=== PATIENT | male | born 1940 | race African-American/Black ===

== ENCOUNTER 2020-08-26 09:20 | Inpatient (IN) | payer MEDICARE, MEDICAID ==
[~2020-08-26] VITALS: Ht 172.7 cm; Wt 68.5 kg
[~2020-08-26 09:20] MED LIST: AMLO10TA4; ASPI-1497; HYDR-1348; PRAV40TA; PREG75CA
[2020-08-26 10:04] LABS: BASOPHILS % 1.2 % (0.0-2.0); HEMATOCRIT. 33.6 % (42.0-52.0); HEMOGLOBIN. 11.4 g/dL (14.0-18.0); LYMPHOCYTES % 30.2 % (20.0-50.0); MEAN CORPUSCULAR HEMOGLOBIN 29.1 pg (28.0-32.0); MEAN CORPUSCULAR VOLUME 85.4 fL (80.0-94.0); MEAN PLATELET VOLUME 7.4 fl (7.4-10.4); MONOCYTES % 7.2 % (2.0-8.0); NEUTROPHILS % 58.4 % (40.0-76.0); PLATELET 330 x1000/uL (130-400); RED BLOOD CELL COUNT 3.93 mill/uL (4.7-6.1); RED CELL DISTRIBUTION WIDTH 14.6 % (11.6-14.6)
[2020-08-26 10:12] LABS: CHLORIDE 111 mEq/L (98-107)
[2020-08-26 10:14] LABS: INR 1.1; PROTHROMBIN TIME 11.3 sec (9.6-11.0)
[2020-08-26 10:53] LABS: CLARITY URINE CLEAR (CLEAR); COLOR URINE YELLOW (YELLOW); KETONES URINE NEGATIVE (NEGATIVE); LEUKOCYTE ESTERASE URINE NEGATIVE (NEGATIVE); NITRITE URINE NEGATIVE (NEGATIVE); OCCULT BLOOD URINE NEGATIVE (NEGATIVE); PH URINE 8.5 (4.5-8.0); PROTEIN URINE NEGATIVE (NEGATIVE); SPECIFIC GRAVITY URINE 1.008 (1.005-1.030); UROBILINOGEN URINE 0.2 E.U./dL (0.2-1.0)
[2020-08-26] MEDS ORDERED: PIPERACILLIN/TAZOBACTAM 3.375GM/50ML PREMIX IV ONE (13:30)
[2020-08-26] MEDS ORDERED: PIPERACILLIN/TAZ 3.375G PREMIX 50 ML IV SCH (13:45)
[2020-08-26] MEDS ORDERED: IOHEXOL-300 100 ML BOTTLE ONE (14:40)
[2020-08-26 20:45] VITALS: BP 118/81
[2020-08-26] MEDS ORDERED: MAGNESIUM/ALUMINUM HYDROXIDE/SIMETHICONE 30ML UDC PO PRN (21:45)
[2020-08-26] MEDS ORDERED: ACETAMINOPHEN 650MG/20.3ML UDC GT PRN ×2 (21:45)
[2020-08-26] MEDS ORDERED: ONDANSETRON HCL 4MG/2ML INJ IV PRN (21:45)
[2020-08-26] MEDS ORDERED: ACETAMINOPHEN 650MG SUPP PR PRN (21:45)
[2020-08-26] MEDS ORDERED: CLONIDINE 0.1MG TABLET PO PRN (21:45)
[2020-08-26] MEDS: MORPHINE SULFATE 2 MG/ML CPJ (NOT FOR IM USE) IV PRN (23:26)
[2020-08-26] MEDS: CEFTRIAXONE 1,000 MG in DEXTROSE 5% WATER 50 ML IV SCH (23:37)
[2020-08-26] MEDS: DEXT 5%/0.45% NACL 1000ML 1,000 ML IV SCH (23:37)
[2020-08-27] VITALS (7 sets, daily range): BP systolic 92–168; BP diastolic 53–75
[2020-08-27 07:10] LABS: CHLORIDE 111 mEq/L (98-107)
[2020-08-27 07:21] LABS: LDL CHOLESTEROL 121 mg/dL (5-100)
[2020-08-27 07:23] LABS: HDL CHOLESTEROL 57 mg/dL (40-59)
[2020-08-27 07:24] LABS: BASOPHILS % 0.8 % (0.0-2.0); EOSINOPHILS % 4.3 % (0.0-5.0); HEMATOCRIT. 34.6 % (42.0-52.0); HEMOGLOBIN. 11.8 g/dL (14.0-18.0); LYMPHOCYTES % 32.1 % (20.0-50.0); MEAN CORPUSCULAR HEMOGLOBIN 28.9 pg (28.0-32.0); MEAN CORPUSCULAR VOLUME 84.8 fL (80.0-94.0); MEAN PLATELET VOLUME 8.1 fl (7.4-10.4); MONOCYTES % 7.6 % (2.0-8.0); NEUTROPHILS % 55.2 % (40.0-76.0); PLATELET 304 x1000/uL (130-400); RED BLOOD CELL COUNT 4.08 mill/uL (4.7-6.1); RED CELL DISTRIBUTION WIDTH 14.5 % (11.6-14.6)
[2020-08-27] MEDS: MULTIVITAMINS,THER W-MINERALS TABLET PO SCH (08:21)
[2020-08-27] MEDS: ENOXAPARIN 40MG/0.4ML SYR SUBCUT SCH (08:21)
[2020-08-27] MEDS: DEXT 5%/0.45% NACL 1000ML 1,000 ML IV SCH ×2 (11:26→23:51)
[2020-08-27] MEDS: CEFTRIAXONE 1,000 MG in DEXTROSE 5% WATER 50 ML IV SCH (23:51)
[2020-08-28 04:00] VITALS: BP 157/69
[2020-08-28 08:10] VITALS: BP 132/65
[2020-08-28] MEDS: ENOXAPARIN 40MG/0.4ML SYR SUBCUT SCH (09:37)
[2020-08-28] MEDS: MULTIVITAMINS,THER W-MINERALS TABLET PO SCH (09:37)
[2020-08-28 12:08] VITALS: BP 156/68
[2020-08-28] MEDS ORDERED: ACETAMINOPHEN 325MG TABLET PO PRN (13:15)
[2020-08-28] MEDS: DEXT 5%/0.45% NACL 1000ML 1,000 ML IV SCH (14:00)
[2020-08-28] MEDS ORDERED: METR500T MT (14:56)
[2020-08-28] MEDS: MORPHINE SULFATE 2 MG/ML CPJ (NOT FOR IM USE) IV PRN ×2 (15:12→16:03)
[2020-08-28 16:41] VITALS: BP 140/65
== END 2020-08-28 17:45 | disposition home or self-care (01) | DRG 392 ==
LOC: ER 09:20 → 6WST 14:52 → EDBEDREQSVC 18:52 → ENRESERV 19:50
PROVIDERS: ADMIT Family Medicine; ATTEND Family Medicine
DX: K52.9 Noninfective gastroenteritis and colitis, unspecified (principal); E44.0 Moderate protein-calorie malnutrition; F01.50 Vascular dementia, unspecified severity, without behavioral disturbance, psychotic disturbance, mood disturbance, and anxiety; E78.5 Hyperlipidemia, unspecified; I10 Essential (primary) hypertension; G89.29 Other chronic pain; Z79.1 Long term (current) use of non-steroidal anti-inflammatories (NSAID); Z90.49 Acquired absence of other specified parts of digestive tract; Z79.899 Other long term (current) drug therapy; Z86.73 Personal history of transient ischemic attack (TIA), and cerebral infarction without residual deficits; Z68.23 Body mass index [BMI] 23.0-23.9, adult; E86.0 Dehydration
CPT/HCPCS: 36415; 74177; 76705; 80053; 80061; 81003; 84484; 85025; 99285; J0696; J1650; J2270; J2543; J7060; Q9967

== ENCOUNTER 2021-06-09 08:27 | Emergency (ER) | payer MEDICARE, MEDICAID ==
[~2021-06-09] VITALS: Ht 180.3 cm; Wt 74.0 kg
[2021-06-09] MEDS ORDERED: HYDROCODONE/ACETAMINOPHEN 5/325MG TABLET PO STA (08:41)
[2021-06-09 09:25] LABS: BASOPHILS % 0.6 % (0.0-2.0); HEMATOCRIT. 36.9 % (42.0-52.0); HEMOGLOBIN. 12.1 g/dL (14.0-18.0); LYMPHOCYTES % 33.9 % (20.0-50.0); MEAN CORPUSCULAR HEMOGLOBIN 27.7 pg (28.0-32.0); MEAN CORPUSCULAR VOLUME 84.6 fL (80.0-94.0); MEAN PLATELET VOLUME 7.1 fl (7.4-10.4); MONOCYTES % 7.3 % (2.0-8.0); NEUTROPHILS % 54.2 % (40.0-76.0); PLATELET 415 x1000/uL (130-400); RED BLOOD CELL COUNT 4.36 mill/uL (4.7-6.1); RED CELL DISTRIBUTION WIDTH 15.1 % (11.6-14.6)
[2021-06-09 09:32] LABS: CHLORIDE 111 mEq/L (98-107)
[2021-06-09 10:45] VITALS: BP 147/58
[2021-06-09] MEDS ORDERED: MELO-105 MT (10:46)
== END 2021-06-09 10:54 | disposition home or self-care (01) ==
LOC: ER 08:38
DX: R07.89 Other chest pain (principal); M25.511 Pain in right shoulder; I10 Essential (primary) hypertension; Z90.49 Acquired absence of other specified parts of digestive tract; Z86.73 Personal history of transient ischemic attack (TIA), and cerebral infarction without residual deficits; Z98.890 Other specified postprocedural states
CPT/HCPCS: 36415; 71045; 73030; 80053; 85025; 93005; 99285

== ENCOUNTER 2021-10-23 07:51 | Inpatient (IN) | payer MEDICARE, MEDICAID ==
[~2021-10-23] VITALS: Ht 182.9 cm; Wt 59.0 kg
[~2021-10-23 07:51] MED LIST changes: +MELO-105 MT; +POLY17PO3 PO; +TOPUD PO
[2021-10-23] MEDS ORDERED: MORPHINE SULFATE 4 MG/ML CPJ (NOT FOR IM USE) IV STA (08:03)
[2021-10-23] MEDS ORDERED: ONDANSETRON HCL 4MG/2ML INJ IV STA (08:03)
[2021-10-23 08:32] LABS: BASOPHILS % 0.8 % (0.0-2.0); EOSINOPHILS % 2.1 % (0.0-5.0); HEMATOCRIT. 34.5 % (42.0-52.0); HEMOGLOBIN. 11.3 g/dL (14.0-18.0); LYMPHOCYTES % 21.1 % (20.0-50.0); MEAN CORPUSCULAR HEMOGLOBIN 27.5 pg (28.0-32.0); MEAN CORPUSCULAR VOLUME 83.6 fL (80.0-94.0); MONOCYTES % 6.4 % (2.0-8.0); NEUTROPHILS % 69.6 % (40.0-76.0); RED BLOOD CELL COUNT 4.13 mill/uL (4.7-6.1); RED CELL DISTRIBUTION WIDTH 15.1 % (11.6-14.6)
[2021-10-23 08:33] LABS: CHLORIDE 108 mEq/L (98-107)
[2021-10-23 09:38] LABS: CLARITY URINE CLEAR (CLEAR); COLOR URINE YELLOW (YELLOW); KETONES URINE NEGATIVE (NEGATIVE); LEUKOCYTE ESTERASE URINE NEGATIVE (NEGATIVE); NITRITE URINE NEGATIVE (NEGATIVE); OCCULT BLOOD URINE NEGATIVE (NEGATIVE); PROTEIN URINE NEGATIVE (NEGATIVE); SPECIFIC GRAVITY URINE 1.006 (1.005-1.030); UROBILINOGEN URINE 0.2 E.U./dL (0.2-1.0)
[2021-10-23] MEDS ORDERED: ONDANSETRON HCL 4MG/2ML INJ IV NR (09:45)
[2021-10-23] MEDS ORDERED: MORPHINE SULFATE 4 MG/ML CPJ (NOT FOR IM USE) IV NR (09:45)
[2021-10-23 10:07] LABS: PLATELET 397 x1000/uL (130-400)
[2021-10-23] MEDS ORDERED: ACETAMINOPHEN 325MG TABLET PO PRN (13:30)
[2021-10-23] MEDS ORDERED: CEFTRIAXONE 1 G PREMIX 50 ML IV NR (13:30)
[2021-10-23] MEDS ORDERED: ONDANSETRON HCL 4MG/2ML INJ IV PRN (13:30)
[2021-10-23 16:00] VITALS: BP 163/60
[2021-10-23 16:23] VITALS: BP 163/60
[2021-10-23] MEDS ORDERED: LACTULOSE 20G/30ML UDC PO NR (19:00)
[2021-10-23 20:00] VITALS: BP 130/51
[2021-10-23] MEDS: FAMOTIDINE 20MG TABLET PO SCH (20:56)
[2021-10-23] MEDS: DOCUSATE SODIUM 250MG CAPSULE PO SCH (20:56)
[2021-10-23] MEDS: AMLODIPINE 10MG TABLET PO SCH (21:00)
[2021-10-24] VITALS: BP 112/49
[2021-10-24 04:00] VITALS: BP 115/47
[2021-10-24 08:14] VITALS: BP 108/50
[2021-10-24] MEDS: AMLODIPINE 10MG TABLET PO SCH (08:57)
[2021-10-24] MEDS: DOCUSATE SODIUM 250MG CAPSULE PO SCH ×2 (08:58→18:26)
[2021-10-24] MEDS: CEFTRIAXONE 1,000 MG in DEXTROSE 5% WATER 50 ML IV SCH ×2 (09:00→11:44)
[2021-10-24 12:00] VITALS: BP 146/55
[2021-10-24] MEDS ORDERED: MAGNESIUM/ALUMINUM HYDROXIDE/SIMETHICONE 30ML UDC PO PRN (12:30)
[2021-10-24] MEDS ORDERED: NALOXONE HCL 0.4MG/ML VIAL IV PRN (13:30)
[2021-10-24] MEDS: TRAMADOL 50MG TABLET PO PRN (13:31)
[2021-10-24 16:00] VITALS: BP 123/55
[2021-10-24 20:00] VITALS: BP_SYST 121; BP_SYST 122; BP_DIAS 65; BP_DIAS 66
[2021-10-24] MEDS: FAMOTIDINE 20MG TABLET PO SCH (21:00)
[2021-10-25] VITALS: BP 121/66
[2021-10-25 04:00] VITALS: BP 122/67
[2021-10-25 08:00] VITALS: BP 130/48
[2021-10-25] MEDS: DOCUSATE SODIUM 250MG CAPSULE PO SCH (08:25)
[2021-10-25] MEDS: AMLODIPINE 10MG TABLET PO SCH (08:25)
[2021-10-25] MEDS: CEFTRIAXONE 1,000 MG in DEXTROSE 5% WATER 50 ML IV SCH (08:25)
[2021-10-25 12:00] VITALS: BP 146/47
[2021-10-25] MEDS ORDERED: LACTULOSE 20G/30ML UDC PO SCH (13:00)
[2021-10-25 16:00] VITALS: BP 151/64
[2021-10-25] MEDS ORDERED: SORBITOL 70% SOLN 30ML PO NR (16:30)
[2021-10-25] MEDS ORDERED: BISACODYL 10MG SUPP PR PRN (18:30)
[2021-10-25 20:00] VITALS: BP 166/60
[2021-10-25] MEDS: FAMOTIDINE 20MG TABLET PO SCH (21:00)
[2021-10-26] VITALS: BP_SYST 131; BP_SYST 138; BP_DIAS 56; BP_DIAS 59
[2021-10-26 08:00] VITALS: BP 128/55
[2021-10-26] MEDS: DOCUSATE SODIUM 250MG CAPSULE PO SCH (08:35)
[2021-10-26] MEDS: AMLODIPINE 10MG TABLET PO SCH (08:35)
[2021-10-26] MEDS: TRAMADOL 50MG TABLET PO PRN (08:36)
[2021-10-26] MEDS ORDERED: NA PHOS,M-B/NA PHOS,DI-BA ENEMA 118ML PR NR (09:45)
[2021-10-26 12:08] VITALS: BP 125/74
[2021-10-26 14:07] VITALS: BP 125/74
== END 2021-10-26 15:40 | disposition home or self-care (01) | DRG 392 ==
LOC: ER 08:02 → EDBEDREQ 10:53 → ENRESERV 13:04 → 6EST 14:14
PROVIDERS: ADMIT Internal Medicine; ATTEND Internal Medicine
DX: K59.00 Constipation, unspecified (principal); E44.1 Mild protein-calorie malnutrition; Z68.1 Body mass index [BMI] 19.9 or less, adult; E87.8 Other disorders of electrolyte and fluid balance, not elsewhere classified; D64.9 Anemia, unspecified; I10 Essential (primary) hypertension; K21.9 Gastro-esophageal reflux disease without esophagitis; Z86.73 Personal history of transient ischemic attack (TIA), and cerebral infarction without residual deficits; Z90.49 Acquired absence of other specified parts of digestive tract; Z82.49 Family history of ischemic heart disease and other diseases of the circulatory system
CPT/HCPCS: 36415; 74176; 76705; 80053; 81003; 85025; 93005; 99285; J0696; J2270; J2405; J7060

== ENCOUNTER 2022-04-19 09:43 | Emergency (ER) | payer MEDICARE, MEDICAID ==
[~2022-04-19] VITALS: Ht 188 cm; Wt 73.0 kg
[2022-04-19] MEDS ORDERED: MORPHINE SULFATE 4 MG/ML CPJ (NOT FOR IM USE) IV STA (09:50)
[2022-04-19 11:47] LABS: BASOPHILS % 0.9 % (0.0-2.0); EOSINOPHILS % 1.4 % (0.0-5.0); HEMATOCRIT. 39.6 % (42.0-52.0); HEMOGLOBIN. 12.9 g/dL (14.0-18.0); MEAN CORPUSCULAR HEMOGLOBIN 27.4 pg (28.0-32.0); MEAN CORPUSCULAR VOLUME 83.8 fL (80.0-94.0); MEAN PLATELET VOLUME 7.3 fl (7.4-10.4); MONOCYTES % 6.1 % (2.0-8.0); NEUTROPHILS % 66.6 % (40.0-76.0); PLATELET 387 x1000/uL (130-400); RED BLOOD CELL COUNT 4.72 mill/uL (4.7-6.1); RED CELL DISTRIBUTION WIDTH 15.8 % (11.6-14.6)
[2022-04-19 11:54] LABS: CLARITY URINE CLEAR (CLEAR); COLOR URINE YELLOW (YELLOW); KETONES URINE NEGATIVE (NEGATIVE); LEUKOCYTE ESTERASE URINE NEGATIVE (NEGATIVE); NITRITE URINE NEGATIVE (NEGATIVE); OCCULT BLOOD URINE NEGATIVE (NEGATIVE); PH URINE >=9.0 (4.5-8.0); PROTEIN URINE TRACE (NEGATIVE); SPECIFIC GRAVITY URINE 1.012 (1.005-1.030); UROBILINOGEN URINE 0.2 E.U./dL (0.2-1.0)
[2022-04-19 12:01] LABS: INR 1.1; PROTHROMBIN TIME 11.3 sec (9.6-11.0)
[2022-04-19 12:10] LABS: CHLORIDE 105 mEq/L (98-107)
[2022-04-19 12:30] VITALS: BP 177/72
[2022-04-19] MEDS: MORPHINE SULFATE 4 MG/ML CPJ (NOT FOR IM USE) IV NR ×2 (12:30→15:34)
[2022-04-19] MEDS ORDERED: TOPUD PO (13:11)
== END 2022-04-19 15:46 | disposition home or self-care (01) ==
LOC: ER 09:43 → CANBEDREQ 04-21 07:24
DX: R10.31 Right lower quadrant pain (principal); I10 Essential (primary) hypertension; Z90.49 Acquired absence of other specified parts of digestive tract; Z86.73 Personal history of transient ischemic attack (TIA), and cerebral infarction without residual deficits; Z79.82 Long term (current) use of aspirin
CPT/HCPCS: 36415; 74176; 80053; 81003; 83690; 85025; 85610; 96374; 99285; J2270

== ENCOUNTER 2022-08-27 08:39 | Emergency (ER) | payer MEDICARE, MEDICAID ==
[~2022-08-27] VITALS: Ht 182.9 cm; Wt 70.0 kg
[2022-08-27 08:43] VITALS: O2SAT 99
[2022-08-27 10:03] LABS: BASOPHILS % 0.8 % (0.0-2.0); EOSINOPHILS % 1.2 % (0.0-5.0); HEMATOCRIT. 33.3 % (42.0-52.0); HEMOGLOBIN. 10.9 g/dL (14.0-18.0); LYMPHOCYTES % 9.8 % (20.0-50.0); MEAN CORPUSCULAR HEMOGLOBIN 27.3 pg (28.0-32.0); MEAN CORPUSCULAR VOLUME 83.1 fL (80.0-94.0); MEAN PLATELET VOLUME 7.1 fl (7.4-10.4); MONOCYTES % 4.6 % (2.0-8.0); NEUTROPHILS % 83.6 % (40.0-76.0); PLATELET 398 x1000/uL (130-400); RED CELL DISTRIBUTION WIDTH 16.2 % (11.6-14.6)
[2022-08-27 10:04] LABS: CLARITY URINE CLEAR (CLEAR); COLOR URINE YELLOW (YELLOW); KETONES URINE NEGATIVE (NEGATIVE); LEUKOCYTE ESTERASE URINE NEGATIVE (NEGATIVE); NITRITE URINE NEGATIVE (NEGATIVE); OCCULT BLOOD URINE NEGATIVE (NEGATIVE); PROTEIN URINE NEGATIVE (NEGATIVE); SPECIFIC GRAVITY URINE 1.011 (1.005-1.030); UROBILINOGEN URINE 0.2 E.U./dL (0.2-1.0)
[2022-08-27 10:10] LABS: CHLORIDE 108 mEq/L (98-107)
[2022-08-27 10:13] LABS: INR 1.1; PROTHROMBIN TIME 11.9 sec (9.6-11.0)
[2022-08-27 10:21] LABS: ETHANOL BLOOD < 10 mg/dL (-10)
[2022-08-27] MEDS ORDERED: ONDANSETRON 4MG ODT PO ONE (11:15)
[2022-08-27] MEDS ORDERED: ACETAMINOPHEN 325MG TABLET PO ONE (11:15)
[2022-08-27 11:25] LABS: *AMPHETAMINES SCREEN URINE NEGATIVE (NEGATIVE); *BARBITURATES SCREEN URINE NEGATIVE (NEGATIVE); *BENZODIAZEPINES SCREEN URINE NEGATIVE (NEGATIVE); *COCAINE SCREEN URINE NEGATIVE (NEGATIVE); CANNABINOID URINE SCREEN NEGATIVE (NEGATIVE); METHADONE URINE SCREEN NEGATIVE (NEGATIVE); OPIATES URINE SCREEN NEGATIVE (NEGATIVE); PHENCYCLIDINE URINE SCREEN NEGATIVE (NEGATIVE)
[2022-08-27] MEDS ORDERED: ONDA4TAB50 MT (13:08)
[2022-08-27] MEDS ORDERED: MAG355OR21 MT (13:08)
[2022-08-27] MEDS ORDERED: ACET-2708 MT (13:08)
[2022-08-27] MEDS ORDERED: LIDOCAINE 5% PATCH TOP ONE (13:15)
[2022-08-27 13:40] VITALS: BP 142/69; PULSE 62; RESP 16; TEMP 97.9
== END 2022-08-27 13:45 | disposition home or self-care (01) ==
LOC: ER 08:39
DX: K59.00 Constipation, unspecified (principal); I10 Essential (primary) hypertension; Z00.00 Encounter for general adult medical examination without abnormal findings; Z79.899 Other long term (current) drug therapy; Z79.82 Long term (current) use of aspirin; Z90.49 Acquired absence of other specified parts of digestive tract; Z86.73 Personal history of transient ischemic attack (TIA), and cerebral infarction without residual deficits; Z98.890 Other specified postprocedural states
CPT/HCPCS: 80053; 80305; 81003; 80320; 83605; 83690; 85025; 85610; 84484; 36415; 74176; 99284; Q0162; G0480

== ENCOUNTER 2023-02-09 06:49 | Emergency (ER) | payer MEDICARE, OTHER ==
[~2023-02-09] VITALS: Ht 172.7 cm; Wt 70.0 kg
[~2023-02-09 06:49] MED LIST changes: +ACET-2708 MT; +AMLO10TA80 PO; +ATOR40TA70 PO; +DICY20TA2 PO; +FAMO20TA8 PO; +GABA-534 PO; +MAG355OR21 MT; +ONDA4TAB50 MT; +TAMS-11 PO; +gabapentin
[2023-02-09 06:55] VITALS: O2SAT 98
[2023-02-09] MEDS ORDERED: ACETAMINOPHEN 325MG TABLET PO ONE (08:15)
[2023-02-09] MEDS ORDERED: IBUPROFEN 400MG TABLET PO ONE (08:15)
[2023-02-09 08:53] LABS: BASOPHILS % 0.6 % (0.0-2.0); EOSINOPHILS % 1.3 % (0.0-5.0); HEMATOCRIT. 32.7 % (42.0-52.0); HEMOGLOBIN. 10.7 g/dL (14.0-18.0); LYMPHOCYTES % 15.2 % (20.0-50.0); MEAN CORPUSCULAR HEMOGLOBIN 27.1 pg (28.0-32.0); MEAN CORPUSCULAR HGB CONC 32.6 g/dL (31.0-37.0); MEAN PLATELET VOLUME 6.8 fl (7.4-10.4); MONOCYTES % 6.1 % (2.0-8.0); NEUTROPHILS % 76.8 % (40.0-76.0); PLATELET 481 x1000/uL (130-400); RED BLOOD CELL COUNT 3.94 mill/uL (4.7-6.1); RED CELL DISTRIBUTION WIDTH 16.1 % (11.6-14.6); WHITE BLOOD COUNT 8.5 x1000/uL (4.5-11.0)
[2023-02-09 09:11] LABS: ALANINE AMINOTRANSFERASE < 7 IU/L (10-49); ALBUMIN 4.3 g/dL (3.2-4.8); ASPARTATE AMINOTRANSFERASE 14 IU/L (<34); BILIRUBIN TOTAL 0.7 mg/dL (0.1-1.0); CALCIUM 9.6 mg/dL (8.7-10.4); CARBON DIOXIDE 29 mEq/L (21-32); CHLORIDE 107 mEq/L (98-107); CREATININE 0.8 mg/dL (0.6-1.3); GLUCOSE 98 mg/dL (70-105); POTASSIUM 4.5 mEq/L (3.5-5.1); PROTEIN TOTAL 6.9 g/dL (6.0-8.3); SODIUM 142 mEq/L (136-145); TROPONIN I HIGH SENSITIVITY 8 ng/L (3.0-53)
[2023-02-09 09:12] LABS: UREA NITROGEN BLOOD < 5 mg/dL (9-23)
[2023-02-09 09:13] LABS: CLARITY URINE CLEAR (CLEAR); COLOR URINE YELLOW (YELLOW); GLUCOSE URINE NEGATIVE (NEGATIVE); KETONES URINE NEGATIVE (NEGATIVE); LEUKOCYTE ESTERASE URINE NEGATIVE (NEGATIVE); NITRITE URINE NEGATIVE (NEGATIVE); OCCULT BLOOD URINE NEGATIVE (NEGATIVE); PROTEIN URINE NEGATIVE (NEGATIVE); SPECIFIC GRAVITY URINE 1.008 (1.005-1.030); UROBILINOGEN URINE 0.2 E.U./dL (0.2-1.0)
[2023-02-09 13:54] VITALS: BP 142/48; PULSE 62; RESP 16; TEMP 98.9
== END 2023-02-09 13:55 | disposition home or self-care (01) ==
LOC: ER 06:49
DX: N40.1 Benign prostatic hyperplasia with lower urinary tract symptoms (principal); I10 Essential (primary) hypertension; Z90.49 Acquired absence of other specified parts of digestive tract; Z86.73 Personal history of transient ischemic attack (TIA), and cerebral infarction without residual deficits
CPT/HCPCS: 36415; 71045; 74176; 80053; 81003; 84484; 85025; 93005; 99285

== ENCOUNTER 2023-04-05 07:40 | Emergency (ER) | payer MEDICARE, OTHER ==
[~2023-04-05] VITALS: Ht 175.3 cm; Wt 68.0 kg
[2023-04-05 07:58] VITALS: O2SAT 99
[2023-04-05] MEDS ORDERED: ACETAMINOPHEN 325MG TABLET PO SCH (08:10)
[2023-04-05 09:09] LABS: BASOPHILS % 0.8 % (0.0-2.0); EOSINOPHILS % 2.4 % (0.0-5.0); HEMOGLOBIN. 10.4 g/dL (14.0-18.0); INR 1.1; LYMPHOCYTES % 31.1 % (20.0-50.0); MEAN CORPUSCULAR HGB CONC 32.7 g/dL (31.0-37.0); MEAN CORPUSCULAR VOLUME 85.7 fL (80.0-94.0); MEAN PLATELET VOLUME 7.2 fl (7.4-10.4); MONOCYTES % 8.3 % (2.0-8.0); NEUTROPHILS % 57.4 % (40.0-76.0); PLATELET 410 x1000/uL (130-400); PROTHROMBIN TIME 11.8 sec (9.6-11.0); RED BLOOD CELL COUNT 3.73 mill/uL (4.7-6.1); RED CELL DISTRIBUTION WIDTH 15.7 % (11.6-14.6); WHITE BLOOD COUNT 4.1 x1000/uL (4.5-11.0)
[2023-04-05 09:20] LABS: ALANINE AMINOTRANSFERASE < 7 IU/L (10-49); ALBUMIN 4.2 g/dL (3.2-4.8); ASPARTATE AMINOTRANSFERASE 14 IU/L (<34); BILIRUBIN TOTAL 1.2 mg/dL (0.1-1.0); CALCIUM 9.4 mg/dL (8.7-10.4); CARBON DIOXIDE 29 mEq/L (21-32); CHLORIDE 107 mEq/L (98-107); CREATININE 0.8 mg/dL (0.6-1.3); GLUCOSE 93 mg/dL (70-105); POTASSIUM 4.5 mEq/L (3.5-5.1); PROTEIN TOTAL 6.7 g/dL (6.0-8.3); SODIUM 141 mEq/L (136-145); TROPONIN I HIGH SENSITIVITY 6 ng/L (3.0-53); UREA NITROGEN BLOOD 9 mg/dL (9-23)
[2023-04-05 09:36] LABS: CLARITY URINE CLEAR (CLEAR); COLOR URINE YELLOW (YELLOW); GLUCOSE URINE NEGATIVE (NEGATIVE); KETONES URINE NEGATIVE (NEGATIVE); NITRITE URINE NEGATIVE (NEGATIVE); OCCULT BLOOD URINE NEGATIVE (NEGATIVE); PROTEIN URINE NEGATIVE (NEGATIVE); SPECIFIC GRAVITY URINE 1.008 (1.005-1.030)
[2023-04-05 09:37] LABS: LEUKOCYTE ESTERASE URINE NEGATIVE (NEGATIVE); UROBILINOGEN URINE 0.2 E.U./dL (0.2-1.0)
[2023-04-05] MEDS ORDERED: MORPHINE SULFATE 4 MG/ML CPJ (NOT FOR IM USE) IV ONE (11:30)
[2023-04-05] MEDS ORDERED: ONDANSETRON HCL 4MG/2ML INJ IV ONE (11:30)
[2023-04-05 11:45] LABS: TROPONIN I HIGH SENSITIVITY 7 ng/L (3.0-53)
[2023-04-05] MEDS ORDERED: IOHEXOL-350 100 ML BOTTLE ONE (11:53)
[2023-04-05] MEDS ORDERED: SENN1TAB35 MT (13:28)
[2023-04-05 14:07] VITALS: BP 135/61; PULSE 63; RESP 16; TEMP 98.7
== END 2023-04-05 14:14 | disposition home or self-care (01) ==
LOC: ER 07:40
DX: K59.00 Constipation, unspecified (principal); I10 Essential (primary) hypertension; Z79.899 Other long term (current) drug therapy; Z79.82 Long term (current) use of aspirin; Z86.73 Personal history of transient ischemic attack (TIA), and cerebral infarction without residual deficits; Z90.49 Acquired absence of other specified parts of digestive tract
CPT/HCPCS: 99291; 74174; 96374; 71275; 71045; 96375; 80053; 81003; 85025; 85610; 84484; 36415; 93005; Q9967; J2405; J2270; C1893

== ENCOUNTER 2024-05-22 09:46 | Emergency (ER) | payer MEDICARE, OTHER ==
[~2024-05-22] VITALS: Ht 182.9 cm; Wt 70.0 kg
[~2024-05-22 09:46] MED LIST changes: -ACET-2708 MT; -AMLO10TA4; +DICL100G58 TP; -HYDR-1348; -MAG355OR21 MT; +MOM PO; -PRAV40TA; +SENN1TAB35 MT; +TRAM50TA3 MT; +WHEA152P PO; -gabapentin
[2024-05-22 09:48] VITALS: O2SAT 100
[2024-05-22] MEDS: HYDROCODONE/ACETAMINOPHEN 10/325MG TABLET PO ONE (11:16)
[2024-05-22 11:20] LABS: CARBON DIOXIDE 29 mEq/L (21-32); CHLORIDE 102 mEq/L (98-107); POTASSIUM 4.1 mEq/L (3.5-5.1); SODIUM 138 mEq/L (136-145)
[2024-05-22 11:23] LABS: BASOPHILS % 1.6 % (0.0-2.0); EOSINOPHILS % 1.9 % (0.0-5.0); HEMATOCRIT. 28.2 % (42.0-52.0); HEMOGLOBIN. 9.1 g/dL (14.0-18.0); LYMPHOCYTES % 27.2 % (20.0-50.0); MEAN CORPUSCULAR HEMOGLOBIN 25.9 pg (28.0-32.0); MEAN CORPUSCULAR HGB CONC 32.2 g/dL (31.0-37.0); MEAN CORPUSCULAR VOLUME 80.6 fL (80.0-94.0); MONOCYTES % 7.3 % (2.0-8.0); PLATELET 393 x1000/uL (130-400); RED CELL DISTRIBUTION WIDTH 17.8 % (11.6-14.6)
[2024-05-22 11:26] LABS: CREATININE 0.8 mg/dL (0.6-1.3); GLUCOSE 95 mg/dL (70-105); UREA NITROGEN BLOOD 9 mg/dL (9-23)
[2024-05-22 11:27] LABS: TROPONIN I HIGH SENSITIVITY 7 ng/L (3.0-53)
[2024-05-22 13:28] LABS: TROPONIN I HIGH SENSITIVITY 7 ng/L (3.0-53)
[2024-05-22] MEDS ORDERED: DICL100G58 TP (13:28)
[2024-05-22] MEDS ORDERED: GABA-534 PO (13:28)
[2024-05-22] MEDS ORDERED: ACET-2708 MT (13:28)
[2024-05-22] MEDS ORDERED: LIDO700A30 TP (13:28)
[2024-05-22 14:05] VITALS: BP 121/74; PULSE 68; RESP 16; TEMP 36.7; O2SAT 95
== END 2024-05-22 14:21 | disposition home or self-care (01) ==
LOC: ER 09:46 → CANBEDREQ 13:50 → ER 14:21
DX: G89.29 Other chronic pain (principal); D64.9 Anemia, unspecified; I10 Essential (primary) hypertension; R41.82 Altered mental status, unspecified; J44.9 Chronic obstructive pulmonary disease, unspecified; Z79.1 Long term (current) use of non-steroidal anti-inflammatories (NSAID); Z79.82 Long term (current) use of aspirin; Z79.899 Other long term (current) drug therapy; Z86.73 Personal history of transient ischemic attack (TIA), and cerebral infarction without residual deficits
CPT/HCPCS: 36415; 71045; 80048; 83880; 84484; 85025; 93005; 99284

== ENCOUNTER 2024-08-14 14:22 | Emergency (ER) | payer MEDICARE, OTHER ==
[~2024-08-14] VITALS: Ht 177.8 cm; Wt 69.0 kg
[~2024-08-14 14:22] MED LIST changes: +ACET-2708 MT; +HYDR-4001 PO; +LEVO-65 MT; +LIDO700A30 TP; +LINA72CA PO; -TAMS-11 PO; +TAMS-54 PO
[2024-08-14 14:25] VITALS: O2SAT 98
[2024-08-14] MEDS: DICLOFENAC SODIUM 1% GEL 50GM TOP SCH (14:45)
[2024-08-14 15:33] LABS: BASOPHILS % 0.9 % (0.0-2.0); EOSINOPHILS % 0.6 % (0.0-5.0); HEMATOCRIT. 26.9 % (42.0-52.0); HEMOGLOBIN. 8.9 g/dL (14.0-18.0); LYMPHOCYTES % 21.3 % (20.0-50.0); MEAN CORPUSCULAR HEMOGLOBIN 26.7 pg (28.0-32.0); MEAN CORPUSCULAR HGB CONC 33.2 g/dL (31.0-37.0); MEAN CORPUSCULAR VOLUME 80.5 fL (80.0-94.0); MEAN PLATELET VOLUME 6.5 fl (7.4-10.4); MONOCYTES % 7.4 % (2.0-8.0); NEUTROPHILS % 69.8 % (40.0-76.0); PLATELET 374 x1000/uL (130-400); RED BLOOD CELL COUNT 3.34 mill/uL (4.7-6.1); WHITE BLOOD COUNT 4.7 x1000/uL (4.5-11.0)
[2024-08-14 15:44] LABS: D-DIMER 0.49 mg/L FEU (<0.50); INR 1.1; PROTHROMBIN TIME 11.5 sec (9.6-11.0)
[2024-08-14 15:45] LABS: CARBON DIOXIDE 29 mEq/L (21-32); CHLORIDE 105 mEq/L (98-107); POTASSIUM 3.8 mEq/L (3.5-5.1); SODIUM 140 mEq/L (136-145)
[2024-08-14 15:46] LABS: CALCIUM 9.1 mg/dL (8.7-10.4)
[2024-08-14 15:50] LABS: CREATININE 0.8 mg/dL (0.6-1.3)
[2024-08-14 15:51] LABS: GLUCOSE 109 mg/dL (70-105); TROPONIN I HIGH SENSITIVITY 6 ng/L (3.0-53); UREA NITROGEN BLOOD 8 mg/dL (9-23)
[2024-08-14 15:52] LABS: ALANINE AMINOTRANSFERASE 9 IU/L (10-49)
[2024-08-14 15:53] LABS: ALBUMIN 3.7 g/dL (3.2-4.8); ASPARTATE AMINOTRANSFERASE 12 IU/L (<34); BILIRUBIN DIRECT 0.3 mg/dL (<=3.0); BILIRUBIN TOTAL 0.8 mg/dL (0.1-1.0); PROTEIN TOTAL 6.1 g/dL (6.0-8.3)
[2024-08-14] MEDS: ACETAMINOPHEN 325MG TABLET PO STA (15:56)
[2024-08-14 18:34] LABS: CLARITY URINE CLEAR (CLEAR); COLOR URINE YELLOW (YELLOW); GLUCOSE URINE NEGATIVE (NEGATIVE); KETONES URINE TRACE (NEGATIVE); LEUKOCYTE ESTERASE URINE NEGATIVE (NEGATIVE); NITRITE URINE NEGATIVE (NEGATIVE); OCCULT BLOOD URINE NEGATIVE (NEGATIVE); PH URINE 7.5 (4.5-8.0); PROTEIN URINE NEGATIVE (NEGATIVE); UROBILINOGEN URINE 0.2 E.U./dL (0.2-1.0)
[2024-08-14 20:30] VITALS: BP 151/66; PULSE 67; RESP 15; TEMP 36.3; O2SAT 100
[2024-08-14] MEDS ORDERED: HYDROCODONE/ACETAMINOPHEN 5/325MG TABLET PO PRN (23:15)
[2024-08-14] MEDS ORDERED: IPRATROPIUM/ALBUTEROL 0.5-3(2.5)MG/3ML NEB HHN PRN (23:15)
[2024-08-14] MEDS ORDERED: NA PHOS,M-B/NA PHOS,DI-BA ENEMA 118ML PR PRN (23:15)
[2024-08-14] MEDS ORDERED: MAGNESIUM HYDROXIDE 400MG/5ML 30ML UDC PO PRN (23:15)
[2024-08-14] MEDS ORDERED: ZOLPIDEM TARTRATE 5MG TABLET PO PRN (23:15)
[2024-08-14] MEDS ORDERED: ACETAMINOPHEN 500MG TABLET PO PRN (23:15)
[2024-08-14] MEDS ORDERED: MAGNESIUM/ALUMINUM HYDROXIDE/SIMETHICONE 30ML UDC PO PRN (23:15)
[2024-08-15] MEDS ORDERED: FAMOTIDINE 20MG TABLET PO SCH (09:00)
[2024-08-15] MEDS ORDERED: ASPIRIN 81MG EC TABLET PO SCH (09:00)
[2024-08-15] MEDS ORDERED: AMLODIPINE 10MG TABLET PO SCH (09:00)
[2024-08-15] MEDS ORDERED: ENOXAPARIN 30MG/0.3ML SYR SUBCUT SCH (09:00)
[2024-08-15] MEDS ORDERED: LIDOCAINE 5% PATCH TOP SCH (09:00)
[2024-08-15] MEDS ORDERED: POLYETHYLENE GLYCOL 3350 (17GM) 1 DOSE PACK PO SCH (09:00)
[2024-08-15] MEDS ORDERED: TAMSULOSIN HCL 0.4MG SR CAPSULE PO SCH (09:00)
[2024-08-15] MEDS ORDERED: ATORVASTATIN CALCIUM 40MG TABLET PO SCH (09:00)
[2024-08-15] MEDS ORDERED: GABAPENTIN 400MG CAPSULE PO SCH (09:00)
== END 2024-08-14 21:21 | disposition short-term general hospital (02) ==
LOC: ER 14:22
DX: R00.1 Bradycardia, unspecified (principal); E78.00 Pure hypercholesterolemia, unspecified; I10 Essential (primary) hypertension; I25.2 Old myocardial infarction; I48.91 Unspecified atrial fibrillation; J44.9 Chronic obstructive pulmonary disease, unspecified; Z79.1 Long term (current) use of non-steroidal anti-inflammatories (NSAID); Z79.82 Long term (current) use of aspirin; Z79.899 Other long term (current) drug therapy; Z86.73 Personal history of transient ischemic attack (TIA), and cerebral infarction without residual deficits
CPT/HCPCS: 36415; 71045; 80048; 80076; 81003; 82962; 83880; 84484; 85025; 85379; 93005; 99291